=== PATIENT | female | born 1965 | race Caucasian/White ===

== ENCOUNTER 2017-07-05 17:59 | Emergency (ER) | payer OTHER ==
[2017-07-05 18:06] VITALS: RESP 16
[2017-07-05] MEDS ORDERED: IBUPROFEN 600 MG TAB PO ONE (20:00)
[2017-07-05] MEDS: CYCLOBENZAPRINE 10 MG TAB PO ONE ×2 (20:05→20:06)
--- NOTE | 2017-07-05 20:18 | EDPHY ---
H & P Stated Complaint: Has h/a,sore throat couple of wks,saw PCP Carmencita sorenson;now neck is painful - Personal History LMP (Females 10-55): Post Menopausal Current Tetanus Diphtheria and Acellular Pertussis (TDAP): Yes - Medical/Surgical History Other PMH: neg - Social History Smoking Status: Never smoked Time Seen by Provider: 07/05/17 19:47 HPI/ROS: CHIEF COMPLAINT: Left neck pain HISTORY OF PRESENT ILLNESS: 52-year-old female generally healthy complaining of mild left neck pain for the past few days, was getting out of the shower this morning and felt sudden spasm like sensation left trapezius region. The pain is reproducible with range of motion. Patient was started on azithromycin Z-Jonathon 3 days ago for acute sinusitis. No dysphagia or odynophagia. No facial complaints. No headache. No dizziness. No nausea or vomiting. No hearing loss or hearing abnormality. No history of head or neck trauma or manipulation. No peripheral paresthesia, weakness, numbness. No diplopia. No facial droop. No gait instability. No slurred speech. REVIEW OF SYSTEMS: A ten point review of systems was performed and is negative with the exception of the items mentioned in the HPI PAST MEDICAL & SURGICAL HISTORY: No pertinent medical or surgical history SOCIAL HISTORY:Nonsmoker, PHYSICAL EXAM (Prior to examination, patient consented to physical exam, hands were washed and my usual and customary physical exam procedures followed) 1) GENERAL: Well-developed, well-nourished, alert and oriented. Smiling, appears well if she does move her head however appears to be in quite a bit of discomfort if she performs range of motion of the neck. 2) HEAD: Normocephalic, atraumatic 3) HEENT: Pupils equal, round, reactive to light bilaterally. Sclera anicteric. Negative Aldo's. No ptosis. No facial vesicles. Nasopharynx, oropharynx, clear, no lesions. Ears bilaterally with normal tympanic membranes. No lesions. No vesicles. 4) NECK: Tender to palpation left trapezius region with noted spasms. Pain is reproducible with range of motion, better if she does not move. No midline C- spine pain, no step-off, no effusion. 5) LUNGS: Clear auscultation bilaterally, no wheezes, no rhonchi, no retractions. 6) HEART: Regular rate and rhythm, no murmur, no heave, no gallop. 7) ABDOMEN: No guarding, no rebound, no focal tenderness, 8) MUSCULOSKELETAL: No peripheral edema or discoloration. 9) BACK: No visual or palpable abnormality. 10) SKIN: No rash, no petechiae. 11) NEURO: Symmetrical facial features. Awake, alert, and oriented to person, place and time. Answers questions appropriately. There were no obvious focal neurologic abnormalities. No cerebellar dysfunction. Cranial nerves 2 through to 12 intact. Normal steady gait. Upper and lower extremities bilaterally with strength 5 / 5, reflexes 2+.. DIFFERENTIAL DIAGNOSIS: In no particular order my differential includes but is not limited to deep space infection, cervico-cranial vessel disssection, muscle strain/torticollis (Marcia,Steve Angy) Constitutional: Initial Vital Signs Temperature (C) 36.7 C 07/05/17 18:03 Heart Rate 65 07/05/17 18:03 Respiratory Rate 16 07/05/17 18:03 Blood Pressure 132/75 H 07/05/17 18:03 O2 Sat (%) 97 07/05/17 18:03 O2 Delivery Mode Room Air Allergies/Adverse Reactions: Penicillins Allergy (Intermediate, Verified 07/05/17 18:02) severe rash Sulfa (Sulfonamide Antibiotics) Allergy (Intermediate, Verified 07/05/17 18:02) had to toe rash Home Medications: Medication Instructions Recorded AZITHROMYCIN [Z-PACK] 250 mg PO DAILY 07/05/17 Cyclobenzaprine [Flexeril 10 MG 10 mg PO TID #15 tab 07/05/17 (RX)] Ibuprofen [Motrin (*)] 600 mg PO Q6 #15 tab 07/05/17 Lidocaine 5% [Lidoderm 5% Patch 1 ea TD BID #30 patch 07/05/17 (*)] Medical Decision Making ED Course/Re-evaluation: 8:18 p.m.: Patient has been re-evaluated with serial examinations. I had a lengthy discussion with the patient and her . Given her history of recent sinusitis diagnosis and azithromycin we definitely discussed the possibility of deep space infection, epidural abscess, however given her current presenting signs and symptoms I think that this is less than likely she has localized tenderness to palpation left trapezius region, no odynophagia, no dysphagia. We also discussed possibility of cervico-cranial vessel dissection which I think is less than likely in this patient at this time the absence of facial symptoms such as paresthesia, absence of dizziness, absence of ptosis, Aldo's, absence of trauma or manipulation, nonfocal neurologic examination. I have nonetheless provided strict return to ER precautions and instructions and the patient and her feel comfortable being discharged. She will be discharged with Flexeril, ibuprofen, Lidoderm patches. Care of patient under supervision of secondary supervising physician Dr Green . (Steve Kennedy) I did not see this patient while she was in the emergency department. However her care was discussed with the PA while the patient was in the department. I agree with treatment plan and management. I am the secondary supervising physician (Hardeep Green) - Data Points Medications Given: Discontinued Medications Cyclobenzaprine HCl (Flexeril) 10 mg PO EDNOW ONE Stop: 07/05/17 20:01 Last Admin: 07/05/17 20:06 Dose: 10 mg Ibuprofen (Motrin) 600 mg PO EDNOW ONE Stop: 07/05/17 20:01 Last Admin: 07/05/17 20:05 Dose: 600 mg Departure - Departure Disposition: Home, Routine, Self-Care Clinical Impression: Torticollis, acute Condition: Good Instructions: Spasmodic Torticollis (ED) Additional Instructions: Return to the ER immediately if you experience new or worsening neck pain, dizziness, visual disturbance, double vision, lightheadedness, facial droop, or any other symptoms that concern you. Avoid deep tissue massage and chiropractic manipulation, until symptom-free, and cleared by your regular health care provider. Referrals: Karma Goddard MD [Primary Care Provider] - 1-2 days without fail Prescriptions: Cyclobenzaprine [Flexeril 10 MG (RX)] 10 mg PO TID #15 tab Ibuprofen [Motrin (*)] 600 mg PO Q6 #15 tab Lidocaine 5% [Lidoderm 5% Patch (*)] 1 ea TD BID #30 patch
[2017-07-05 20:40] VITALS: BP 125/70; PULSE 85; TEMP 97.9; O2SAT 95
== END 2017-07-05 20:38 | disposition home or self-care (01) ==
DX: M43.6 Torticollis (principal)